=== PATIENT | male | born 1985 | race Caucasian/White ===

== ENCOUNTER 2019-01-15 17:26 | Emergency (ER) | payer OTHER ==
[~2019-01-15] VITALS: Ht 182.9 cm; Wt 70.3 kg
--- NOTE | 2019-01-15 17:47 | NUR ---
PT NOT IN WAITING ROOM WHEN CALLED FOR TRIAGE X 2.
[2019-01-15] MEDS ORDERED: FINA1TAB PO (17:59)
--- NOTE | 2019-01-15 19:04 | NUR ---
Pt ambulated to ER with c/o right upper back pain that started 2 hrs ago + tachycardia, pt denies any injury to area. Denies chest pain/shortness of breath. Denies GI/ distress. Respirations even + unlabored. AAOx4. Family at bedside. Will continue to monitor.
[2019-01-15 19:30] LABS: BASOPHILS % (AUTO) 0.3 % (0.0-2.0); EOSINOPHILS % (AUTO) 0.5 % (0.0-7.0); HEMATOCRIT 46.9 % (36.7-47.1); HEMOGLOBIN 15.8 g/dL (12.5-16.3); LYMPHOCYTES # (AUTO) 1.1 K/uL (20.0-40.0); MEAN CORPUSCULAR HEMOGLOBIN 28.1 uug (23.8-33.4); MEAN CORPUSCULAR HGB CONC 34 g/dL (32.5-36.3); MEAN CORPUSCULAR VOLUME 83.3 fL (73.0-96.2); MONOCYTES # (AUTO) 0.5 K/uL (2.0-10.0); MONOCYTES % (AUTO) 6.5 % (0.0-11.0); NEUTROPHILS # (AUTO) 5.8 K/uL (1.8-8.9); NEUTROPHILS % (AUTO) 77.7 % (38.5-71.5); PLATELET COUNT (AUTO) 227 K/uL (152-348); RED BLOOD CELL COUNT(AUTO) 5.63 MIL/uL (4.06-5.63); WHITE BLOOD COUNT (AUTO) 7.5 K/uL (3.6-10.2)
[2019-01-15 19:38] LABS: CREATININE 0.9 mg/dL (0.6-1.3); POTASSIUM 4.6 mmol/L (3.5-5.1)
[2019-01-15] MEDS ORDERED: NORMAL SALINE FLUSH 10 ML DISP.SYRIN ONE (20:33)
[2019-01-15] MEDS ORDERED: IOHEXOL 350 100 ML INFUS..BTL ONE (20:33)
[2019-01-15] MEDS ORDERED: SWABABLE VALVE TRANSFER SET EA MC ONE (20:33)
[2019-01-15] MEDS ORDERED: IV NORMAL SALINE 250 ML IV ONE (20:33)
--- NOTE | 2019-01-15 20:43 | NUR ---
Pt went down to radiology dept for CTA at this time. Consent signed. IV placed to Rt FA 20 gauge.
--- NOTE | 2019-01-15 20:58 | NUR ---
Pt back from radiology dept, back in room 3A.
[2019-01-15] MEDS ORDERED: IV NORMAL SALINE 1000 ML BAG IV ONE (21:15)
--- NOTE | 2019-01-15 22:05 | NUR ---
IV removed. Catheter intact and site benign. Pressure and 4x4 gauze applied to site. No bleeding noted.
--- NOTE | 2019-01-15 22:18 | NUR ---
Patient discharged to home in stable conditon. Written and verbal after care instructions given. Patient verbalizes understanding of instructions. Pt left ER w family members w stable gait. No acute distress noted. Pt has no other s/s or complaints at this time. All belongings w pt.
[2019-01-15 22:22] VITALS: BP 134/79
== END 2019-01-15 22:24 | disposition home or self-care (01) ==
LOC: ER 17:26
DX: M54.6 Pain in thoracic spine (principal); R00.0 Tachycardia, unspecified; Z79.899 Other long term (current) drug therapy
CPT/HCPCS: 36415; 71045; 71275; 80048; 85025; 85379; 93005; 99284; Q9967; A4663; J3490; J7030; J7050